=== PATIENT | female | born 1940 ===

== ENCOUNTER 2021-10-29 06:00 | Outpatient (RCR) | payer MEDICARE, BC, SELFPAY | END 2021-10-29 23:59 | disposition home or self-care (01) | LOC: TPT 06:00 | PROVIDERS: PCP Family Medicine; Visit Provider Family Medicine | DX: M48.062 Spinal stenosis, lumbar region with neurogenic claudication (principal) | CPT/HCPCS: 97162 ==

== ENCOUNTER 2021-10-30 06:00 | Outpatient (RCR) | payer MEDICARE, BC, SELFPAY | END 2021-11-28 23:59 | disposition home or self-care (01) | LOC: TPT 06:00 | PROVIDERS: PCP Family Medicine; Visit Provider Family Medicine | DX: M48.062 Spinal stenosis, lumbar region with neurogenic claudication (principal) | CPT/HCPCS: 97110 ==

== ENCOUNTER 2021-11-29 06:00 | Outpatient (RCR) | payer MEDICARE, BC, SELFPAY | END 2021-12-29 23:59 | disposition home or self-care (01) | LOC: TPT 06:00 | PROVIDERS: PCP Family Medicine; Visit Provider Family Medicine | DX: M48.062 Spinal stenosis, lumbar region with neurogenic claudication (principal) | CPT/HCPCS: 97110 ==

== ENCOUNTER 2022-09-22 06:00 | Outpatient (RCR) | payer MEDICARE, BC, SELFPAY | END 2022-09-28 23:59 | disposition home or self-care (01) | LOC: TPT 06:00 | PROVIDERS: Visit Provider Psychiatry & Neurology Neurology | DX: R25.1 Tremor, unspecified (principal) | CPT/HCPCS: 97110; 97163 ==

== ENCOUNTER 2022-09-29 01:00 | Outpatient (RCR) | payer MEDICARE, BC, SELFPAY | END 2022-10-29 23:59 | disposition home or self-care (01) | LOC: TPT 01:00 | PROVIDERS: Visit Provider Psychiatry & Neurology Neurology | DX: G20 Parkinson's disease (principal); R25.1 Tremor, unspecified | CPT/HCPCS: 97110 ==

== ENCOUNTER 2022-10-30 06:00 | Outpatient (RCR) | payer MEDICARE, BC, SELFPAY | END 2022-11-28 23:59 | disposition home or self-care (01) | LOC: TPT 06:00 | PROVIDERS: Visit Provider Psychiatry & Neurology Neurology | DX: R25.1 Tremor, unspecified (principal) | CPT/HCPCS: 97110 ==